=== PATIENT | male | born 1980 | race African-American/Black ===

== ENCOUNTER 2022-11-12 14:39 | Emergency (ER) | payer MEDICAID ==
[~2022-11-12] VITALS: Ht 177.8 cm; Wt 97.0 kg
[2022-11-12 14:48] VITALS: TEMP 98.5; O2SAT 98
[2022-11-12 15:45] VITALS: BP 139/84; PULSE 102; RESP 20
[2022-11-12] MEDS ORDERED: KETOROLAC 15MG/ML VIAL IM ONE (15:45)
== END 2022-11-12 18:17 | disposition home or self-care (01) ==
LOC: ER 14:39
DX: R51.9 Headache, unspecified (principal); R00.0 Tachycardia, unspecified
CPT/HCPCS: 70450; 96372; 99285; J1885; Z7610